=== PATIENT | female | born 1970 | race Caucasian/White ===

== ENCOUNTER 2021-03-21 08:54 | Emergency (ER) | payer OTHER ==
[~2021-03-21] VITALS: Ht 165.1 cm; Wt 112.5 kg
[2021-03-21 09:21] LABS: BASOPHIL 0.5 % (0-2); EOSINOPHIL 0.5 % (0-5); HCT 41.3 % (37.0-47.0); HGB 13.3 g/dl (12.5-16.0); LYMPHOCYTE 22.8 % (15-48); MCHC 32.2 g/dL (32.0-36.0); MONOCYTE 6.1 % (0-12); MPV 9.4 fL (6.0-9.5); NEUTROPHIL 69.9 % (41-80); NRBC 0; PLT 305 K/uL (150-400); RBC 4.59 M/uL (4.20-5.40); RDW 13.3 % (11.5-14.0); WBC 10.1 K/uL (4.0-10.5)
[2021-03-21 09:45] LABS: ALBUMIN 4.2 g/dL (3.4-5.0); BILIRUBIN - TOTAL 0.3 mg/dL (0.2-1.0); BUN/CREAT RATIO (CALC) 25.9 RATIO; CREATININE 0.85 mg/dL (0.51-0.95); GLOBULIN (CALCULATION) 3.6 g/dL; POTASSIUM 4.2 mmol/L (3.5-5.1); TOTAL PROTEIN 7.8 g/dL (6.4-8.2)
[2021-03-21 13:19] LABS: INR 0.89 (0.9-1.2); PROTHROMBIN TIME 11.5 SECONDS (11.8-13.4); PTT 28.1 SECONDS (24.4-34.7)
[2021-03-21] MEDS ORDERED: ROSUVASTATIN CA10 MG PO (13:20)
[2021-03-21] MEDS ORDERED: LEVOTHYROXINE75 MC1 PO (13:20)
[2021-03-21] MEDS ORDERED: DICLOFENAC SODI75 MG PO (13:21)
== END 2021-03-21 17:10 | disposition other institution (70) ==
LOC: FER 08:54
PROVIDERS: Emergency Medicine
DX: I21.4 Non-ST elevation (NSTEMI) myocardial infarction (principal); E78.5 Hyperlipidemia, unspecified; E03.9 Hypothyroidism, unspecified; Z20.822 Contact with and (suspected) exposure to COVID-19
CPT/HCPCS: 36415; 71046; 80053; 82553; 83690; 84443; 84484; 85025; 85379; 85610; 85730; 93005; J1644; U0002